=== PATIENT | male | born 1970 | race Caucasian/White ===

== ENCOUNTER 2018-03-24 10:34 | Emergency (ER) | payer OTHER ==
[2018-03-24 10:44] VITALS: BP 150/91; PULSE 72; TEMP 98; BMI 29.2
[2018-03-24] MEDS ORDERED: KETOROLAC TROMETHAMINE 60 MG/2 ML VIAL IM ONE (11:18)
[2018-03-24] MEDS ORDERED: KETOROLAC TROMETHAMINE 60 MG/2 ML VIAL ONE (11:22)
--- NOTE | 2018-03-24 11:24 | PDOC ---
History of Present Illness - General Chief Complaint: Pain, Acute Stated Complaint: SHOULDER PAIN Time Seen by Provider: 03/24/18 11:14 History Source: Patient Exam Limitations: No Limitations - History of Present Illness Initial Comments: Patient is a 47-year-old male who states that he does repetitive heavy lifting complains of right shoulder pain. He denies injury or trauma. Patient describes the pain as a throb, worse with movement and rates it at a 5 out of 10. Patient denies attempting [id number] medications. He denies upper extremity paresthesia. He denies chest pain. Patient denies any relieving factors. 03/24/18 11:18 Past History - Travel Traveled outside of the country in the last 30 days: No Close contact w/someone who was outside of country & ill: No - Past Medical History Allergies/Adverse Reactions: Allergies Allergy/AdvReac Type Severity Reaction Status Date / Time No Known Allergies Allergy Verified 03/24/18 10:43 Home Medications: Ambulatory Orders NK [No Known Home Medication] 03/24/18 - Suicide/Smoking/Psychosocial Hx Smoking History: Current every day smoker Information on smoking cessation initiated: No Review of Systems - Review of Systems Able to Perform ROS?: No Constitutional: No: Chills, Fever Respiratory: No: Cough Cardiac (ROS): No: Chest Pain Musculoskeletal: Yes: Muscle Pain All Other Systems: Reviewed and Negative *Physical Exam - Vital Signs Last Vital Signs Temp Pulse Resp BP Pulse Ox 98 F 72 16 150/91 97 03/24/18 10:43 03/24/18 10:43 03/24/18 10:43 03/24/18 10:43 03/24/18 10:43 - Physical Exam Comments: Constitutional: VS stated, pt appears in no apparent distress; sitting in chair. Skin: Warm and dry. Intact, no lesions or excoriations. Head: Normocephalic; atraumatic Eyes: conjunctiva pink without injection or discharge. Throat: Oropharynx with pink and moist mucosa. Lungs: Bilateral breath sounds clear upon auscultation. No adventitious breath sounds. Heart: Regular rate and rhythm, S1/S2 auscultated. No murmurs, rubs, or gallops. No visible pulsations, heaves, or lifts on precordium. Musculoskeletal: Focused on the right shoulder. No deformity. Patient has pain upon palpation to the trapezius and deltoid. He has pain with abduction. 5 /5 strength in upper extremity groups. Radial pulse present, cap refill less than 2 seconds, sensation intact. Neurologic: Awake, alert. Conversation fluent. Psychiatric: Appropriate affect. 03/24/18 11:20 Medical Decision Making - Medical Decision Making Patient's physical exam is within normal limits, He has had no injury or trauma , I do not feel x-rays are warranted at this time, I feel this is more musculoskeletal in nature. Patient was given Toradol 60 mg IM. 03/24/18 11:21 *DC/Admit/Observation/Transfer Diagnosis at time of Disposition: Shoulder sprain Qualifiers: Encounter type: initial encounter Shoulder sprain type: unspecified sprain Laterality: right Qualified Code(s): S43.401A - Unspecified sprain of right shoulder joint, initial encounter - Discharge Dispostion Disposition: HOME Condition at time of disposition: Stable Decision to Admit order: No - Referrals - Patient Instructions Printed Discharge Instructions: DI for Shoulder Sprain Additional Instructions: Ibuprofen 600 mg every 6 hours. Follow-up with your primary care physician. - Post Discharge Activity Forms/Work/School Notes: Back to Work
== END 2018-03-24 11:32 | disposition home or self-care (01) ==
LOC: JERFT 10:34
PROC: 3E0233Z Introduction of Anti-inflammatory into Muscle, Percutaneous Approach (ICD-10-PCS; principal; 2018-03-24)
DX: S43.401A Unspecified sprain of right shoulder joint, initial encounter (principal); X58.XXXA Exposure to other specified factors, initial encounter; Y93.89 Activity, other specified; Y92.9 Unspecified place or not applicable; F17.210 Nicotine dependence, cigarettes, uncomplicated
CPT/HCPCS: 99281-25